=== PATIENT | female | born 1985 | race Caucasian/White ===

== ENCOUNTER 2018-07-21 05:56 | Inpatient (IN) ==
[2018-07-21] MEDS ORDERED: ONDANSETRON 4 MG/2 ML VIAL IV PRN ×2 (06:09→14:08)
[2018-07-21] MEDS ORDERED: BUTORPHANOL 1 MG/ML VIAL IV PRN (06:09)
[2018-07-21] MEDS ORDERED: MEPERIDINE 50 MG/1 ML VIAL IV PRN (06:09)
[2018-07-21] MEDS ORDERED: LACTATED RINGERS 1,000 ML IV SCH (06:30)
[2018-07-21] MEDS ORDERED: OXYTOCIN/LR 20 UNIT/1,000 ML BAG IV SCH (06:30)
[2018-07-21 06:45] LABS: Basophils # 0.1 10*3/uL (0.0-0.2); Basophils % 0.6 % (0.0-0.8); Eosinophils # 0.2 10*3/uL (0.0-0.87); Eosinophils % 1.7 % (0.00-10.9); Hematocrit 36.8 VOL% (35.7-47.0); Hemoglobin 11.8 GM/DL (12.0-16.0); Immature Granulocytes % 0.9 %; Lymphocytes # 2.6 10*3/uL (1.4-4.0); Lymphocytes % 23.8 % (21.3-54.2); Mean Corpuscular HGB Conc 32.1 GM/DL (32-36); Mean Corpuscular Hemoglobin 25 PG (27-34); Mean Corpuscular Volume 78.6 FL (87-102); Monocytes # 0.8 10*3/uL (0.11-0.8); Neutrophils # 7.1 10*3/uL (1.4-7.4); Platelet Count 222 T/CUMM (130-400); Red Blood Count 4.68 MC/CUMM (3.8-5.5); Red Cell Distribution Width 16.8 % (9.3-17.3); White Blood Count 10.8 T/CUMM (4-12)
[2018-07-21] MEDS ORDERED: diphenhydrAMINE 50 MG/1 ML VIAL IV PRN ×2 (08:04)
[2018-07-21] MEDS ORDERED: ONDANSETRON 4 MG/2 ML VIAL IV ONE (08:04)
[2018-07-21] MEDS ORDERED: ePHEDrine 50 MG/ML AMP IV PRN (08:04)
[2018-07-21] MEDS ORDERED: NALOXONE 0.4 MG/ML VIAL IV PRN (08:04)
[2018-07-21] MEDS ORDERED: CITRIC ACID/SODIUM CITRATE 30 ML UDCUP PO ONE (08:05)
[2018-07-21] MEDS ORDERED: FAMOTIDINE 20 MG/2 ML VIAL IV ONE (08:06)
[2018-07-21] MEDS ORDERED: fentaNYL 2 MCG/ROPIV 0.2% EPID 100 ML EPIDURAL SCH (08:30)
[2018-07-21 10:28] LABS: Apearance,Urine CLEAR (Clear); Bilirubin,Urine Negative (Negative); Blood, Urine Negative (Negative); Glucose,Urine (UA) Negative (Negative); Ketones,Urine Negative (Negative); Mucus,Urine Occasional /LPF (Occasional); Nitrite,Urine Negative (Negative); Protein,Urine Negative; RBC,Urine <1 /HPF (0-4); Squamous Epithelial Cell,Urine Occasional /HPF (0-10); Urine Color Yellow (Yellow); Urine Specific Gravity 1.015 (1.001-1.035); Urine Urobilinogen < 2.0 EU/DL (0.2-1.0); WBC,Urine <1 /HPF (0-6)
[2018-07-21] MEDS ORDERED: miSOPROStol 200 MCG TABLET ONE (12:28)
[2018-07-21] MEDS ORDERED: OXYTOCIN/LR 20 UNIT/1,000 ML BAG IV ONE ×2 (12:28→14:08)
[2018-07-21] MEDS ORDERED: TRANEXAMIC ACID 1,000 MG/10 ML VIAL ONE (12:28)
[2018-07-21] MEDS ORDERED: CARBOPROST TROMETHAMINE 250 MCG/ML AMP IM ONE (12:29)
[2018-07-21] MEDS ORDERED: METHYLERGONOVINE 0.2 MG/1 ML AMP ONE (12:29)
[2018-07-21] MEDS ORDERED: HYDROCORTISONE 2.5% RECTAL CREAM 30 GM TUBE TOP PRN (14:08)
[2018-07-21] MEDS ORDERED: WITCH HAZEL PADS 100/JAR TOP PRN (14:08)
[2018-07-21] MEDS ORDERED: oxyCODONE/ACETAMINOPHEN 5-325 MG TABLET PO PRN (14:08)
[2018-07-21] MEDS ORDERED: LANOLIN 50% CREAM 0.3 OZ TUBE TOP PRN (14:08)
[2018-07-21] MEDS ORDERED: ACETAMINOPHEN 325 MG TABLET PO PRN (14:08)
[2018-07-21] MEDS ORDERED: RHO(D) IMMUNE GLOBULIN 300 MCG SYRINGE IM ONE (14:08)
[2018-07-21] MEDS ORDERED: MEASLES/MUMPS/RUBELLA VACCINE 0.5 ML VIAL SUBCUT ONE (14:08)
[2018-07-21] MEDS ORDERED: BISACODYL 10 MG SUPP RECTAL PRN (14:08)
[2018-07-21] MEDS ORDERED: DIPH/TET/ACEL PERT BOOSTER VACCINE 0.5 ML VIAL IM ONE (14:08)
[2018-07-21] MEDS ORDERED: BENZOCAINE 20%/MENTHOL 0.5% SPRAY 56 GM CAN TOP PRN (14:08)
[2018-07-21 15:03] LABS: Cord Venous Blood HCO3 22.5 MMOL/L; Cord Venous Blood PCO2 36.9 MMHG
[2018-07-21 15:09] LABS: Cord Arterial Blood HCO3 23.2 MMOL/L
[2018-07-21] MEDS: IBUPROFEN 800 MG TABLET PO PRN (15:56)
[2018-07-21] MEDS: oxyCODONE/ACETAMINOPHEN 5-325 MG TABLET PO PRN (18:25)
[2018-07-21] MEDS: DOCUSATE SODIUM 100 MG CAPSULE PO SCH (22:21)
[2018-07-22] MEDS: oxyCODONE/ACETAMINOPHEN 5-325 MG TABLET PO PRN (01:11)
[2018-07-22 04:24] LABS: Basophils # 0.1 10*3/uL (0.0-0.2); Basophils % 0.5 % (0.0-0.8); Eosinophils # 0.2 10*3/uL (0.0-0.87); Eosinophils % 1.2 % (0.00-10.9); Hematocrit 27.8 VOL% (35.7-47.0); Immature Granulocytes % 0.6 %; Immature Granulocytes Absolute 0.08 #; Lymphocytes # 3.2 10*3/uL (1.4-4.0); Lymphocytes % 25.6 % (21.3-54.2); Mean Corpuscular HGB Conc 32.4 GM/DL (32-36); Mean Corpuscular Hemoglobin 26 PG (27-34); Mean Corpuscular Volume 79.2 FL (87-102); Mean Platelet Volume 9.7 FL (9.6-12.0); Monocytes # 0.8 10*3/uL (0.11-0.8); Monocytes % 6.4 % (1.7-12.7); Neutrophils # 8.2 10*3/uL (1.4-7.4); Neutrophils % 65.7 % (38.7-73.9); Platelet Count 186 T/CUMM (130-400); Red Blood Count 3.51 MC/CUMM (3.8-5.5); Red Cell Distribution Width 16.9 % (9.3-17.3); White Blood Count 12.4 T/CUMM (4-12)
[2018-07-22] MEDS: FERROUS SULFATE 325 MG TABLET PO SCH ×2 (09:07→20:03)
[2018-07-22] MEDS: DOCUSATE SODIUM 100 MG CAPSULE PO SCH ×2 (09:07→20:03)
[2018-07-22] MEDS: IBUPROFEN 800 MG TABLET PO PRN ×2 (09:11→17:20)
[2018-07-23] MEDS: IBUPROFEN 800 MG TABLET PO PRN (07:39)
[2018-07-23] MEDS: DOCUSATE SODIUM 100 MG CAPSULE PO SCH (08:32)
[2018-07-23] MEDS: FERROUS SULFATE 325 MG TABLET PO SCH (08:32)
[2018-07-23 11:23] VITALS: BP 116/70
== END 2018-07-23 16:50 | disposition home or self-care (01) | DRG 807 ==
LOC: N.LDOUT 05:56 → N.LD 06:00 → N.OB 16:42
PROVIDERS: ADMIT Obstetrics & Gynecology; ATTEND Obstetrics & Gynecology